=== PATIENT | female | born 1995 | race Two or more races ===

== ENCOUNTER 2024-02-04 10:36 | Emergency (ER) | payer OTHER ==
[~2024-02-04] VITALS: Ht 162.6 cm; Wt 85.3 kg
[2024-02-04] MEDS ORDERED: LABETALOL HCL200 MG (10:46)
[2024-02-04 11:55] LABS: HEMATOCRIT 37.8 % (36.0-45.00); HEMOGLOBIN 12.6 g/dL (12.0-15.00); MEAN CELL VOLUME 90.8 fL (80.00-100.00); MEAN CORPUSCULAR HEMOGLOBIN 30.2 pg (27.00-32.0); MEAN CORPUSCULAR HGB CONC 33.3 g/dl (32.0-36.0); PLATELET COUNT 395 K/uL (150-450); RED BLOOD COUNT 4.16 M/uL (4.00-6.00); RED CELL DISTRIBUTION WIDTH 12.7 % (11.5-14.5)
[2024-02-04 13:05] LABS: PH,URINE 5.5 (5.0-8.0); URINE APPEARANCE Cloudy; URINE BILIRRUBIN Negative (NEGATIVE); URINE BLOOD Large; URINE COLOR Yellow; URINE GLUCOSE Negative (NEGATIVE); URINE KETONE Trace (NEGATIVE); URINE LEUKOCYTE Small; URINE NITRATE Negative; URINE PROTEIN 30 (NEGATIVE)
[2024-02-04 13:09] LABS: URINE BACTERIA 2277.6 uL (0.0-1933); URINE EPITHELIAL CELLS 138.5 uL (0.0-38.8); URINE RBC 2348.6 uL (0.0-20.8); URINE WBC 82.7 uL (0.0-23.2)
[2024-02-04] MEDS ORDERED: AMOX1TAB5 PO (13:28)
[2024-02-04] MEDS ORDERED: PEPCID AC20 MG PO (13:28)
== END 2024-02-04 13:54 | disposition home or self-care (01) ==
LOC: ER 10:38
PROVIDERS: General Practice
DX: O20.8 Other hemorrhage in early pregnancy (principal); Z3A.01 Less than 8 weeks gestation of pregnancy; Z88.8 Allergy status to other drugs, medicaments and biological substances; I10 Essential (primary) hypertension; E11.9 Type 2 diabetes mellitus without complications

== ENCOUNTER 2024-07-06 23:56 | Emergency (ER) | payer OTHER ==
[~2024-07-06] VITALS: Ht 162.6 cm; Wt 82.6 kg
[~2024-07-06 23:56] MED LIST: AMOX1TAB5 PO; LABETALOL HCL200 MG; PEPCID AC20 MG PO
[2024-07-07] MEDS ORDERED: HYDRALAZINE HCL25 MG (00:08)
[2024-07-07] MEDS ORDERED: ACETAMINOPHEN 500 MG GEL..CAP PO STA (01:04)
[2024-07-07] MEDS ORDERED: ACETAMINOPHEN 500 MG GEL..CAP PO ONE (01:16)
[2024-07-07 01:41] LABS: BASO % 0.3 % (0.1-1.2); EOS # 0.08 (0.04-0.54); EOS % 0.6 % (0.7-7.0); HEMATOCRIT 35.4 % (34.1-44.9); HEMOGLOBIN 12.1 g/dL (11.2-15.7); LYMPH # 1.88 (1.18-3.74); LYMPH % 14.3 % (19.3-53.1); MEAN CORPUSCULAR HEMOGLOBIN 29.7 pg (25.6-32.2); MONO # 0.72 (0.24-0.82); MONO % 5.5 % (4.7-12.5); NEUT # 10.32 (1.56-6.13); NEUT % 78.8 % (34.0-71.1); PLATELET COUNT 395 K/uL (163-369); RED BLOOD COUNT 4.08 M/uL (3.93-5.22); RED CELL DISTRIBUTION WIDTH 11.7 % (11.6-14.4)
[2024-07-07 01:42] LABS: PH,URINE 5.5 (5.0-8.0); URINE APPEARANCE Cloudy; URINE BILIRRUBIN Negative (NEGATIVE); URINE BLOOD Negative; URINE COLOR Dark Yellow; URINE GLUCOSE Negative (NEGATIVE); URINE LEUKOCYTE Trace; URINE NITRATE Negative; URINE PROTEIN Negative (NEGATIVE); URINE UROBILINOGEN 0.2 E.U./dl
[2024-07-07 01:47] LABS: URINE BACTERIA 1451.5 uL (0.0-1933); URINE EPITHELIAL CELLS 62.2 uL (0.0-38.8); URINE RBC 220.9 uL (0.0-20.8); URINE WBC 35.4 uL (0.0-23.2)
[2024-07-07 01:48] LABS: URINE KETONE 40 (NEGATIVE)
[2024-07-07 01:59] LABS: CALCIUM 9.4 mg/dL (8.5-10.1); CREATININE SERUM 0.68 mg/dL (0.55-1.02); GFR 101.59; POTASSIUM 3.94 mEq/L (3.5-5.1)
[2024-07-07 02:29] LABS: COVID-19 AG NEGATIVE (NEGATIVE); INFLUENZA A AG NEGATIVE (NEGATIVE)
[2024-07-07] MEDS ORDERED: KETOROLAC TROMETHAMINE 60 MG VIAL IM STA (04:24)
[2024-07-07] MEDS ORDERED: KETOROLAC TROMETHAMINE 60 MG VIAL IM ONE (04:27)
[2024-07-07] MEDS ORDERED: DOLOGESIC 500-1 EACH PO (07:19)
== END 2024-07-07 07:35 ==
LOC: ER 23:59
PROVIDERS: General Practice
DX: R51.9 Headache, unspecified (principal); I10 Essential (primary) hypertension; E11.9 Type 2 diabetes mellitus without complications; Z20.822 Contact with and (suspected) exposure to COVID-19; Z88.1 Allergy status to other antibiotic agents

== ENCOUNTER 2024-12-26 04:30 | Inpatient (IN) | payer OTHER ==
[~2024-12-26] VITALS: Ht 162.6 cm; Wt 92.5 kg
[~2024-12-26 04:30] MED LIST changes: +DOLOGESIC 500-1 EACH PO; +HYDRALAZINE HCL25 MG
[2024-12-26 05:07] VITALS: BP 147/80
[2024-12-26] MEDS ORDERED: HYDRALAZINE HCL25 MG PO (05:21)
[2024-12-26] MEDS ORDERED: PRENATA CHEWAB1 EACH PO (05:21)
[2024-12-26] MEDS ORDERED: NIFEDIPINE20 MG PO (05:22)
[2024-12-26] MEDS ORDERED: LABETALOL HCL200 MG PO (05:22)
[2024-12-26] MEDS ORDERED: CHILDREN'S ASPI81 MG PO (05:23)
[2024-12-26] MEDS ORDERED: HUMALOG100 UNIT/1 SUBCUTANEO (05:24)
[2024-12-26] MEDS ORDERED: NOVOLIN 70100 UNIT/1 SUBCUTANEO (05:24)
[2024-12-26 06:15] VITALS: BP 131/82; O2SAT 99
[2024-12-26] MEDS ORDERED: CLINDAMYCIN PHOSPHATE 150 MG/ML (600mg) IV SCH (08:00)
[2024-12-26] MEDS ORDERED: OXYTOCIN 10 UNITS/ML VIAL ONE ×2 (08:20→15:50)
[2024-12-26] MEDS ORDERED: ERYTHROMYCIN BASE OPHT 1GM EACH TUBE OP ONE (08:21)
[2024-12-26] MEDS ORDERED: CARBOPROST TROMETHAMINE 250 MCG/ML AMPUL IM ONE (09:08)
[2024-12-26] MEDS ORDERED: PROMETHAZINE HCL 25 MG/ML AMPUL IV SCH (12:00)
[2024-12-26] MEDS ORDERED: MORPHINE SULFATE 4 MG/ML CARTRIDGE IV SCH (15:33)
[2024-12-26] MEDS ORDERED: DEXTROSE 5 % AND 0.9 % NACL 1,000 ML IV SCH (17:00)
[2024-12-26 17:37] VITALS: BP 131/56
[2024-12-27 00:10] VITALS: BP 105/68
[2024-12-27 04:30] VITALS: BP 119/68
[2024-12-27 06:48] LABS: BASO % 0.4 % (0.1-1.2); EOS # 0.10 (0.04-0.54); EOS % 0.7 % (0.7-7.0); LYMPH # 1.19 (1.18-3.74); LYMPH % 8.4 % (19.3-53.1); MEAN PLATELET VOLUME 9.90 fl (9.4-12.4); MONO # 0.92 (0.24-0.82); MONO % 6.5 % (4.7-12.5); NEUT # 11.80 (1.56-6.13); NEUT % 83.4 % (34.0-71.1); RED CELL DISTRIBUTION WIDTH 12.8 % (11.6-14.4)
[2024-12-27] MEDS ORDERED: NAPROXEN 500 MG TABLET PO PRN (08:45)
[2024-12-27] MEDS ORDERED: ACETAMINOPHEN WITH CODEINE 1 UDTAB TABLET PO PRN (08:45)
[2024-12-27 09:15] VITALS: BP 136/80
[2024-12-27 10:13] LABS: BASO % 0.4 % (0.1-1.2); EOS # 0.17 (0.04-0.54); EOS % 1.0 % (0.7-7.0); LYMPH # 1.47 (1.18-3.74); LYMPH % 8.9 % (19.3-53.1); MEAN PLATELET VOLUME 9.80 fl (9.4-12.4); MONO # 0.83 (0.24-0.82); MONO % 5.0 % (4.7-12.5); NEUT # 13.88 (1.56-6.13); NEUT % 83.7 % (34.0-71.1); RED CELL DISTRIBUTION WIDTH 13.1 % (11.6-14.4)
[2024-12-27 17:00] VITALS: BP 134/76
[2024-12-28] VITALS: BP 121/79
[2024-12-28 09:11] VITALS: BP 121/78
[2024-12-28] MEDS ORDERED: INSULIN LISPRO 1,000 UNIT/10 ML UNITS SUBCUTANEO STA ×2 (09:22→10:47)
== END 2024-12-28 12:54 | disposition home or self-care (01) | DRG 788 ==
LOC: LDR 04:30 → O/R 12:11 → OB/GYN 14:43
PROVIDERS: ADMIT Specialist; ATTEND Specialist
PROC: 0UB90ZZ Excision of Uterus, Open Approach (ICD-10-PCS; 2024-12-26)
PROC: 4A1HXCZ Monitoring of Products of Conception, Cardiac Rate, External Approach (ICD-10-PCS; 2024-12-26)
PROC: 10D00Z1 Extraction of Products of Conception, Low, Open Approach (ICD-10-PCS; principal; 2024-12-26 11:15)
DX: O32.1XX0 Maternal care for breech presentation, not applicable or unspecified (principal); O34.13 Maternal care for benign tumor of corpus uteri, third trimester; D25.9 Leiomyoma of uterus, unspecified; Z3A.37 37 weeks gestation of pregnancy; Z37.0 Single live birth